=== PATIENT | female | born 1995 | race Two or more races ===

== ENCOUNTER 2023-05-21 13:49 | Emergency (ER) | payer OTHER ==
[~2023-05-21] VITALS: Ht 160 cm; Wt 59.0 kg
[2023-05-21] MEDS ORDERED: ZOFRAN8 MG PO (18:32)
[2023-05-21] MEDS ORDERED: PEPCID AC20 MG PO (18:32)
== END 2023-05-21 18:37 | disposition home or self-care (01) ==
LOC: ER 13:49
DX: K29.00 Acute gastritis without bleeding (principal); Z88.6 Allergy status to analgesic agent

== ENCOUNTER 2025-09-30 11:56 | Outpatient (CLI) | payer OTHER ==
[~2025-09-30 11:56] MED LIST: PEPCID AC20 MG PO; ZOFRAN8 MG PO
== END 2025-09-30 11:57 | disposition home or self-care (01) ==
LOC: PRENATAL 11:56
PROVIDERS: ATTEND Obstetrics & Gynecology Maternal & Fetal Medicine
DX: O36.80X0 Pregnancy with inconclusive fetal viability, not applicable or unspecified (principal); Z36.82 Encounter for antenatal screening for nuchal translucency; Z14.8 Genetic carrier of other disease; Z3A.11 11 weeks gestation of pregnancy